=== PATIENT | male | born 2000 | race Caucasian/White ===

== ENCOUNTER 2025-01-16 15:13 | Emergency (ER) | payer OTHER, BC, SELFPAY ==
[2025-01-16 15:27] VITALS: BP 143/76; PULSE 81; RESP 16; TEMP 36.6; O2SAT 98
--- NOTE | 2025-01-16 15:28 | ED_ITS ---
HPI - Wound/Laceration General Chief Complaint: Wound/Laceration Stated Complaint: Suture Removal Time Seen by Provider: 01/16/25 15:28 Source: patient Mode of arrival: ambulatory Limitations: no limitations History of Present Illness HPI narrative: 24 y/o male presented for staple removal. Endorses 7 erna were placed to a laceration wound to the left wrist sustained 10 days ago when he cut himself accidentally with a razor blade while at work. He was seen at a hospital in [facility] for the staple placement, and tetanus was updated that day. Denies any redness, pain or drainage. Related Data Home Medications ?Medication ?Instructions ?Recorded ?Confirmed ?Last Taken ?Type No Home Medications 01/16/25 Unknown History Allergies Allergy/AdvReac Type Severity Reaction Status Date / Time No Known Allergies Allergy Verified 01/16/25 15:33 Review of Systems Review of Systems: [facility] Comments At time of signature, I have reviewed and agree with nursing past medical, surgical, social and family history unless otherwise noted. Please see nursing chart for further information. There is no relevant family history pertinent to the presenting complaint Exam Narrative: GENERAL: Well-appearing EYES: conjunctivae clear, and EOMI. ENT: Mucous membranes moist. Oropharynx without edema, erythema or lesions. CHEST: Clear to auscultation. HEART: Regular rate and rhythm. SKIN: Warm, dry. left wrist healing lac wound with 7 erna intact. No signs of infection. CMS intact. NEURO: Alert and oriented x3. Course Course Emergency Course: Patient is aware of diagnosis, understands and agrees to treatment plan. Anticipatory guidance given. Patient agrees to follow-up as directed and is aware of reasons to seek care at the emergency department. Portions of this record may have been created with voice recognition software Level of Care: Express Care Visit Vital Signs Vital signs: Reviewed Procedures Other Procedure Procedure 1: Other Procedure: left wrist 7 erna removed without difficulty. center with approx 1cm area nearly approximated,steri strip applied. Wound clean and healing well. MDM - Wound/Laceration MDM Narrative Medical decision making narrative: Discussed physical exam findings; 7 erna removed without difficulty. center with approx 1cm area nearly approximated,steri strip applied. Advised supportive measures and signs/symptoms to go to the ER. Pt is appropriate for outpt treatment and f/u. Differential Diagnosis Differential diagnosis: Likely laceration, abrasion and avulsion of skin Discharge Plan Discharge Clinical Impression: Encounter for removal of erna Patient Disposition: Home Condition: Stable Instructions: Antibiotic Form, Laceration (ED) Additional Instructions: Keep the area clean and dry - cleanse with warm water and mild soap and allow to fully dry. Ok to apply neosporin to the site Keep it open to air (no bandages) The steri strip will roll off on its own; do not submerge it in water. Watch for worsening symptoms including pain, redness, swelling, streaking, pus/drainage, fever. Go to the ER with any of these symptoms or concerns. Follow up with primary care provider as needed. Patient Language: Hungarian Prescriptions: No Action No Home Medications Follow-up/Referrals: UNKNOWN,DOCTOR [Primary Care Provider] -
--- OUTSIDE RECORDS SUMMARY | 2025-01-16 17:13 | XMS_ITS | Clinical Summary ---
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 Name Role Phone Anurag Lin, CHLOE-BC, Catherine Primary Care Provider Allergies No known active allergies Medications No known medications Active Problems Problem Noted Date Diagnosed Date Tobacco use 05/07/2021 Asthma ([facility] Immunizations Immunization Administration Dates Next Due Dtap 04/29/2004, 0,1999,1999, 1999 Hepatitis B/Hib 3 Dose Schedule 08/31/2000,08/14,1999 MMR 04/29/2004,08/31/2000 Polio IPV (Ipol) 04/29/2004,08/31/2000, 9,1999 Tdap (Generic) 05/10/2013 Varicella Vaccine 03/27/2003 Family History Medical History Relation Comments insulin resistance Father Hypertension Paternal Grandfather Relation Status Comments Father Paternal Grandfather Social History Tobacco Use Types Packs/Day Years Used Date Smoking Tobacco: Every Day Smokeless Tobacco: Never Alcohol Use Standard Drinks/Week Comments Yes 0 (1 standard drink = 0.6 oz pur e alcohol) Sex and Gender Information Value Date Recorded Sex Assigned at Not on file Legal Sex Male 8:31 PM CDT Gender Identity Not on file Sexual Orientation Not on file Last Filed Vital Signs Vital Sign Reading Time Taken Comments Blood Pressure 124/70 05/07/2021 3:10 PM CDT Pulse 90 05/07/2021 3:10 PM CDT Temperature 36.7 C (98.1 F) 05/07/2021 3:10 PM CDT Respiratory Rate 16 05/07/2021 3:10 PM CDT Oxygen Saturation 98% 05/07/2021 3:10 PM CDT Inhaled Oxygen Concentration - - Weight 69.9 kg (154 lb) 05/07/2021 3:10 PM CDT Height 177.8 cm (5' 10 ) 05/07/2021 3:10 PM CDT Body Mass Index 22.1 05/07/2021 3:10 PM CDT Plan of Treatment Health Maintenance Due Date Last Done Comments Annual Physical 2002 HPV Vaccines (1 - Male 3-dose series) 2014 Hepatitis C 2017 Pneumococcal Vaccine: Pediatrics (0 to 5 Years) and At-Risk Patients (6 to 49 Years) (1 of 2 - PCV) 2018 DTaP, Tdap and Td Vaccines (7 - Td or Tdap) 05/10/2023 05/10/2013, 04/29/2004, 08/31/2000, Additional history exists COVID-19 Vaccine ( season) 2024 Hepatitis B Vaccines Completed 08/31/2000, 1999, 1999 Meningococcal B Vaccine Aged Out No l onger eligible based on patient's age to complete this topic Meningococcal Vaccine Aged Out No guanaco ubaldo eligible based on patient's age to complete this topic RSV Immunizations Under 20 Months Aged Out No longer eligible based on patient's age to complete this topic Insurance [employer] Care Teams Elementary Special Education Teacher Relationship Specialty Start Date End Date Catherine Osborn V, [facility] [address] [place] [address] [place] [address] PCP - General Nurse Practitioner Family 12/14/22
== END 2025-01-16 15:46 | disposition home or self-care (01) ==
PROVIDERS: Emergency Provider Nurse Practitioner Family
DX: S61.512D Laceration without foreign body of left wrist, subsequent encounter (principal); W26.8XXD Contact with other sharp object(s), not elsewhere classified, subsequent encounter
CPT/HCPCS: 99211; G0463